=== PATIENT | male | born 2005 | race Caucasian/White ===

== ENCOUNTER 2025-07-06 20:41 | Emergency (ER) | payer SELFPAY ==
[~2025-07-06] VITALS: Ht 172.7 cm; Wt 85.0 kg
[2025-07-06 20:49] VITALS: O2SAT 98
[2025-07-06] MEDS ORDERED: LIDOCAINE 5% PATCH TOP STA (21:55)
[2025-07-06] MEDS: IBUPROFEN 600MG TABLET PO ONE (23:05)
[2025-07-06] MEDS: CYCLOBENZAPRINE 10MG TABLET PO ONE (23:05)
[2025-07-06] MEDS ORDERED: IBUP-1455 MT (23:58)
[2025-07-06] MEDS ORDERED: LIDO700A30 TP (23:58)
[2025-07-06] MEDS ORDERED: CYCL10TA21 MT (23:58)
[2025-07-06] MEDS ORDERED: IBUP-2030 MT (23:59)
[2025-07-07] MEDS: LIDOCAINE 5% PATCH TOP NR (00:01)
[2025-07-07 00:46] VITALS: BP 133/82; PULSE 100; RESP 18; TEMP 37.3; O2SAT 98
== END 2025-07-07 00:48 | disposition home or self-care (01) ==
LOC: ER 20:41
DX: M79.641 Pain in right hand (principal); M25.531 Pain in right wrist; M54.50 Low back pain, unspecified
CPT/HCPCS: 71101; 73110; 73130; 73590; 99284